=== PATIENT | female | born 1965 | race Caucasian/White ===

== ENCOUNTER 2018-08-15 17:11 | Emergency (ER) | payer BC, OTHER ==
[2018-08-15 17:32] VITALS: BP 146/58
[2018-08-15] MEDS ORDERED: Al Hydrox/Mg Hydrox/Simet LIQ* 30 ML UDC PO ONE (17:32)
[2018-08-15] MEDS ORDERED: Lidocaine 2% VISCOUS* 15 ML UDC PO ONE (17:34)
--- NOTE | 2018-08-15 17:47 | UC ---
Cardiac HPI - HPI Summary HPI Summary: C/O chest pain off/on over the last 2 days. Worse with eating. Associated with some nausea but no SOB or diaphoresis. Better with famotidine and burping. - History of Current Complaint Chief Complaint: UCChestPain Stated Complaint: CHEST PAIN Time Seen by Provider: 08/15/18 17:19 Hx Obtained From: Patient Onset/Duration: Gradual Onset, Lasting Days - 2, Still Present Initial Severity: Mild Current Severity: Mild Pain Intensity: 3 Chest Pain Location: Mid Sternal Character: Dull/Aching Aggravating Factor(s): Other - Eating. Was the worst with eating dinner this PM. Alleviating Factor(s): Medication Associated Signs & Symptoms: Positive: Chest Pain, Nausea/Vomiting - no vomiting.. Negative: Weakness, Dizziness, SOB, Diaphoresis, Palpitations - Allergy/Home Medications Allergies/Adverse Reactions: Allergies Allergy/AdvReac Type Severity Reaction Status Date / Time No Known Allergies Allergy Verified 08/15/18 17:26 Home Medications: Home Medications Famotidine TAB* [Pepcid 20 MG TAB*] 20 mg PO ONCE PRN 08/15/18 [History Confirmed 08/15/18] PMH/Surg Hx/FS Hx/Imm Hx Previously Healthy: Yes - Surgical History Surgical History: Yes Surgery Procedure, Year, and Place: c section - Family History Known Family History: Negative: Cardiac Disease - Social History Occupation: Employed Full-time Lives: With Family Alcohol Use: None Substance Use Type: None Smoking Status (MU): Never Smoked Tobacco Review of Systems Cardiovascular: Chest Pain Gastrointestinal: Nausea Is Patient Immunocompromised?: No All Other Systems Reviewed And Are Negative: Yes Physical Exam Triage Information Reviewed: Yes Appearance: Well-Appearing, No Pain Distress, Obese Vital Signs: Initial Vital Signs Temp 97.9 F 08/15/18 17:27 Pulse 73 08/15/18 17:27 Resp 18 08/15/18 17:27 BP 146/58 08/15/18 17:27 Pulse Ox 99 08/15/18 17:27 Vital Signs Reviewed: Yes Eyes: Positive: Conjunctiva Clear Neck exam: Normal Respiratory Exam: Normal Cardiovascular Exam: Normal Abdomen Description: Positive: No Organomegaly, Soft. Negative: Nontender - epigastic tenderness. Musculoskeletal Exam: Normal Neurological Exam: Normal Psychological Exam: Normal Skin Exam: Normal Diagnostics - EKG Cardiac Rate: NL Cardiac Rhythm: Sinus: Normal Ectopy: None ST Segment: Normal - Differential Diagnoses - Chest Pain Differential Diagnosis/HQI/PQRI: Angina, Chest Wall, GI Disease - Clinical Impression Provider Diagnoses: Gastritis. Chest pain, other Discharge - Sign-Out/Discharge Documenting (check all that apply): Post-Discharge Follow Up All imaging exams completed and their final reports reviewed: No Studies - Discharge Plan Condition: Stable Disposition: HOME Patient Education Materials: Gastritis (ED), Gastroesophageal Reflux Disease ( ED) Additional Instructions: Continue the famotidine. Decrease size of meals. Avoid fatty meals. Decrease caffeine. - Billing Disposition and Condition Condition: STABLE Disposition: Home
== END 2018-08-15 17:54 | disposition home or self-care (01) ==
LOC: UCCORT 17:11
DX: K29.70 Gastritis, unspecified, without bleeding (principal); R07.89 Other chest pain
CPT/HCPCS: 93005; 99202; A9270-GY; G0463